=== PATIENT | female | born 1950 | race Caucasian/White ===

== ENCOUNTER → 2020-09-13 11:32 | Outpatient (CLI) | payer OTHER, SELFPAY ==
[2020-09-14 22:37] LABS: COVID19 Sendout Not Detected (Not Detect)
== END ==
PROVIDERS: Visit Provider Physician Assistant
DX: Z01.812 Encounter for preprocedural laboratory examination (principal)
CPT/HCPCS: 87635

== ENCOUNTER 2020-09-16 11:08 | Inpatient (IN) | payer OTHER, SELFPAY ==
[2020-09-10 08:30] VITALS: BMI 20.6
[2020-09-16] VITALS (18 sets, daily range): BP systolic 96–125; BP diastolic 60–79; PULSE 61–91; RESP 11–21; TEMP 35.9–37.1; O2SAT 90–99; BMI 20.9
[2020-09-16] MEDS: LACTATED RINGERS 1,000 ML 42 ML IV ×2 (12:19→14:46)
[2020-09-16] MEDS: CELECOXIB 200 MG CAPSULE 400 MG PO (12:19)
[2020-09-16] MEDS: ACETAMINOPHEN 325 MG TABLET 975 MG PO (12:19)
--- NOTE | 2020-09-16 12:59 | PM.PREOP ---
Pre-operative Note COVID-19 COVID-19 status: Negative Result date/Date tested (Pos, Neg/Pending): 09/13/20 Interval Note History & Physical reviewed/Exam performed by Physician: No Changes to H&P: Yes H&P completed within 30 days and has changed as indicated here:: Plan for open scar debridement and revision of patellar button. We had a long discussion in clinic as well as the pre-op area discussing her symptoms as well as the planned surgery. She has a difficult problem she has pain in a revised TKA in addition her bone scan is suggestive of possible loosening of the components. Her synovasure aspiration was negative for infection. I think a total revision is unlikely to provide significant benefit over open debrideement of scar as well as revision of the patellar button as most of her pain is anterior knee pain. Again I have made no promises to the patient regarding relief of symptoms, outcome etc. Patient wishes to proceed.
[2020-09-16] MEDS: CEFAZOLIN 2 GM/100 ML FROZ.PIGGY IV ×2 (13:46→21:24)
[2020-09-16] MEDS: TRANEXAMIC ACID 1,000 MG VIAL 1000 MG IV ×2 (13:58→14:59)
--- NOTE | 2020-09-16 14:18 | SUR.OPER ---
Supine on padded OR bed. Pillow under head, arms secured on padded armboards <90 degree abduction. Safety belt across torso. Non-operative leg secured with tape over blanket over lower leg. Operative leg secured in DeMayo/Dimitrios positioner. Foam padded brace at thigh of operative leg.
[2020-09-16] MEDS: ROPIVACAINE 0.5% PF 5 MG/ML 20ML VIAL 30 ML INJ (14:43)
[2020-09-16] MEDS: KETOROLAC 30 MG/ML VIAL INJ (14:44)
[2020-09-16] MEDS: MORPHINE 4 MG/ML INJ INJ (14:45)
--- NOTE | 2020-09-16 15:30 | P.OP_ITS ---
Operative Date/Time/Diagnoses Date of procedure: 09/16/20 Time of procedure: 15:30 Pre-op diagnosis: loose patella button, knee pain Post-op diagnosis: same Procedure & Clinicians Procedure: Open lysis and debridement of adhesions. Revision of patellar button. Same procedure as scheduled: Yes Indications: Anterior knee pain status post revision total knee arthroplasty. knee was aspirated in clinic and did not show any signs of infection. Concern for patellar button loosening as well as degree of patellar clunk. 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 Closure Type: primary Specimen(s): other (multiple swabs, 1x tissue culture) Prosthetic devices, grafts, tissues, transplants, or devices: Jackson and Nephew Nina II round 38 mm patellar button Estimated Blood Loss (mL): 100 Tourniquet time (min): 44 Procedure in detail: Patient was met in the preop holding area where the site and side of surgery were marked by MD informed consent had been and reviewed in signing clinic our this was also reviewed in the preoperative holding area again. All last minute questions were answered. Again I emphasized that she has a complex problem and may no promises to outcomes. Patient was then brought back in the operating room where she was induced under general anesthesia after being transferred to the operating room table. A nonsterile tourniquet was then placed on left thigh and the left lower extremity then prepped and draped in normal sterile fashion. A surgical time-out was performed verifying the site and side of surgery as well as the neck met the patient. Her old surgical incision was used. A 10. Blade was used to incise the skin followed by a new 10. Blade to raise medial and lateral flaps. The medial parapatellar arthrotomy was marked out with a Bovie and marked with a surgical marker. The arthrotomy was performed using 10. Blade. This point synovial fluid cultures were sent. The a medial peel was then performed using electrocautery as well as a limited patellar tendon peel. This gave us good exposure to the knee. This point a synovectomy including the mediolateral gutters was performed. Some of this tissue was sent for tissue culture. Then turned my attention to the patellar side there was a large volume of tissue at the insertion of the quad tendon on the undersurface of the quad tendon as it inserts into the patella. This may represent scar tissue getting caught in the patellar block box indicating patellar clunk. This was removed as well as excess tissue at the origin of the patellar tendon. The patellar button itself was interrogated was easily removed using an osteotome. The undersurface of the patellar button was then swabbed for culture as well. A freshen up cut was then performed and a curette was used to curette out the old drill holes. All membranous tissue in all old cement was removed. The knee was then infiltrated with dilute Betadine solution which was left to sit for 5 minutes prior to being irrigated with copious normal saline. Pulse lavage was used. The patella was then sized and prep for 38 mm patellar button. This was then drilled and a trial 38 mm button was placed and taken through range of motion and was tracking appropriately. The trial was then removed. Cement was packed onto the cut surface of the patella as well as between the pegs on the patellar button. This was then placed on the patella and clamped into place. All excess cement was removed and the joint again was flooded with dilute Betadine solution allowed to sit until the cement had fully cured. The Betadine was then lavaged with copious normal saline patellar clamp was removed. At this time the tourniquet was let down and hemostasis was achieved using electrocautery. The medial for patellar arthrotomy was closed using interrupted 1. Vicryl followed by a running 2. Quill suture. This was a watertight closure. Local injection was then placed inside the knee joint and we turned our attention to the skin layer. Skin was closed using 2. 0 Vicryl in interrupted fashion in the subcutaneous tissue followed by lio on skin. An Aquacel dressing was then placed. Complications: none Post-operative Condition: stable Disposition: PACU Plan for aftercare: 24 horus post-op abx, WBAT LLE, ASA 81mg BID for 6 weeks, follow cultures
[2020-09-16] MEDS: fentaNYL 100 MCG/2 ML INJ IV ×4 (15:39→16:08)
[2020-09-16] MEDS: HYDROMORPHONE 2 MG INJ IV ×8 (15:40→16:46)
[2020-09-16] MEDS: OXYCODONE IR 5 MG TABLET PO (15:50)
[2020-09-16] MEDS: ONDANSETRON 4 MG/2 ML INJ (17:44)
[2020-09-16] MEDS: LACTATED RINGERS 1,000 ML 100 ML IV ×2 (17:52→21:28)
[2020-09-16] MEDS: METOCLOPRAMIDE 10 MG/2 ML INJ IV (18:52)
[2020-09-16] MEDS: HYDROMORPHONE 0.5 MG INJ 0.2 MG IV (19:31)
[2020-09-16] MEDS: NICOTINE 14 PATCH 14 MG TOP (19:31)
[2020-09-16] MEDS: AMITRIPTYLINE 25 MG TABLET 100 MG PO (21:00)
[2020-09-16] MEDS: ALBUTEROL/IPRATROPIUM 3 ML AMPUL INH (21:09)
[2020-09-16] MEDS: ASPIRIN EC 81 MG TABLET PO (21:23)
[2020-09-16] MEDS: ACETAMINOPHEN 325 MG TABLET 650 MG PO (21:23)
[2020-09-16] MEDS: ATORVASTATIN 20 MG TABLET 40 MG PO (21:24)
[2020-09-16] MEDS: OXYCODONE IR 10 MG TABLET PO (22:17)
--- NOTE | 2020-09-16 23:00 | PC.NURSE ---
Report received from PACU, care assumed [id number]. VSS. CMS intact. Pain and nausea intermittent throughout shift. Pt. OOB with walker, ambulated in room. Good posture, steady on feet.
[2020-09-17] MEDS: OXYCODONE IR 10 MG TABLET PO ×3 (02:26→12:06)
[2020-09-17 05:24] VITALS: BP 117/56; PULSE 73; RESP 16; TEMP 36.4; O2SAT 92
[2020-09-17] MEDS: CEFAZOLIN 2 GM/100 ML FROZ.PIGGY IV (05:25)
[2020-09-17 05:58] LABS: Add Manual Diff / Slide Review NO; Basophils Absolute Auto 0 /uL (0-100); Basophils Percent Auto 0.4 % (0-2); Eosinophils Absolute Auto 0 /uL (0-450); Eosinophils Percent Auto 0.2 % (2-4); Hematocrit 34.9 % (36-46); Hemoglobin 11.7 g/dL (12.0-16.0); Lymphocytes Absolute Auto 1900 /uL (1100-4500); Lymphocytes Percent Auto 20.1 % (25-40); Mean Corpuscular HGB Conc 33.5 % (30-36); Mean Corpuscular Hemoglobin 30.4 PG (26-34); Mean Corpuscular Volume 90.9 fL (80-100); Monocytes Absolute Auto 700 /uL (0-900); Monocytes Percent Auto 7.1 % (3-14); Neutrophils Absolute Auto 6700 /uL (1500-7000); Neutrophils Percent Auto 72.2 % (50-75); Platelet Count 275 X10^3/uL (150-400); Red Blood Cell Count 3.84 X10^6/uL (4.0-5.2); Red Cell Distribution Width 12.7 % (11.6-14.8); White Blood Cell Count 9.3 X10^3/uL (4.5-11.0)
[2020-09-17] MEDS: SODIUM CHLORIDE 0.9% FLUSH 10 ML IV (06:30)
[2020-09-17 07:00] VITALS: BP 110/63; PULSE 73; RESP 16; TEMP 36.8; O2SAT 99
--- NOTE | 2020-09-17 07:49 | P.PN_ITS ---
Subjective Subjective Date Patient Seen: 09/17/20 Time Patient Seen: 07:49 Interval history: Status post, Open lysis and debridement of adhesions. Revision of patellar button. Pain is mild. Denies fever chills. No nausea vomiting. Patient's is home to assist her. Exam Vital Signs (past 8 hours): - 09/17/20 05:24 Temperature 97.5 F L Pulse Rate 73 Respiratory Rate 16 Blood Pressure 117/56 L Pulse Oximetry 92 Oxygen Delivery Method Nasal Cannula Oxygen Flow Rate 0 Narrative Exam Narrative: Right knee dressing is clean, dry and intact. Calf is soft and nontender. Both legs are warm and dry. Motor function is sensation grossly intact to the bilateral lower extremities. Objective Labs Result Diagrams: 09/17/20 05:11 Labs: Laboratory Results - last 24 hr 09/17/20 05:11 WBC 9.3 RBC 3.84 L Hgb 11.7 L Hct 34.9 L MCV 90.9 MCH 30.4 MCHC 33.5 RDW 12.7 Plt Count 275 Neut % (Auto) 72.2 Lymph % (Auto) 20.1 L [place] % (Auto) 7.1 Eos % (Auto) 0.2 L Baso % (Auto) 0.4 Neut # (Auto) 6700 Lymph # (Auto) 1900 [place] # (Auto) 700 Eos # (Auto) 0 Baso # (Auto) 0 Assessment & Plan Post-op Postoperative Procedures: Procedures Operation Date: 09/16/20 13:45 Actual Procedures Side Surgeon p Knee Open Debridement With Revision of Patellar Button Left Jacob Enriquez MD Patient progressing as expected. Mobilize with physical therapy. Likely discharge home today.
[2020-09-17] MEDS: ACETAMINOPHEN 325 MG TABLET 650 MG PO (08:45)
[2020-09-17] MEDS: CYCLOBENZAPRINE 10 MG TABLET PO (08:50)
[2020-09-17] MEDS: ASPIRIN EC 81 MG TABLET PO (08:51)
[2020-09-17] MEDS: DOCUSATE 100 MG CAPSULE PO (08:51)
[2020-09-17] MEDS: GABAPENTIN 600 MG TABLET 1200 MG PO (08:51)
[2020-09-17] MEDS: BENZONATATE 100 MG CAPSULE 200 MG PO (08:52)
[2020-09-17] MEDS: ALBUTEROL/IPRATROPIUM 3 ML AMPUL INH (09:19)
[2020-09-17 09:30] VITALS: PULSE 83; O2SAT 97
--- NOTE | 2020-09-17 09:35 | PT.IIE ---
Current Diagnoses Pain due to internal orthopedic prosthetic devices, implants and grafts, initial encounter (09/16/20) Surgery Performed Operation Date: 09/16/20 13:45 Actual Procedures p Knee Open Debridement With Revision of Patellar Button(Left) - Jacob Enriquez MD Surgical History (Last Updated 09/10/20 @ 09:21 by Ashely Herman, RN) History of arthroplasty of left knee (Acute 2015) History of arthroscopy of both knees (Acute 2013) History of bronchoscopy (Acute 08/09/18) History of Marciano fundoplication (Acute 2011) History of removal of ovarian cyst (Acute) History of surgical removal of ganglion cyst (Acute 09/28/19) Hx of bilateral cataract extraction (Acute 2015) Hx of cholecystectomy (Acute 1980) Hx of hand surgery (Acute 2005) Hx of hernia repair (Acute) Hx of total vaginal hysterectomy (Acute 1976) Hx of tubal ligation (Acute 1974) S/P right rotator cuff repair (Acute 2014) Status post fusion of joint of finger (Acute 09/28/19) Medical History (Last Updated 09/10/20 @ 09:25 by Ashely Herman RN) Chronic anxiety (Acute) Chronic low back pain without sciatica (Acute) Chronic respiratory failure with hypoxia, on home oxygen therapy (Acute) COPD (chronic obstructive pulmonary disease) (Acute) Depression (Acute) EAGLE (dyspnea on exertion) (Acute) Easy bruisability (Acute) Elevated LFTs (Acute) Emphysema of lung (Acute) GERD (gastroesophageal reflux disease) (Acute) History of pulmonary embolism (Acute 2015) History of revision of total replacement of left knee joint (Acute 2016) History of seizure (Acute 1996) HLD (hyperlipidemia) (Acute) Memory loss (Acute) Osteoarthritis (Acute) Pneumonitis (Acute) Scoliosis (Acute) Vitamin D deficiency (Acute) Physical Therapy Inpatient Evaluation/Re-Eval M1 PT/OT-IP Prior Functional Status Start: 09/17/20 12:43 Freq: NEEDED Status: Active Protocol: Document 09/17/20 09:35 AB (Rec: 09/17/20 12:57 AB [id number]) Medical Review Prior Functional Status Medical History Reviewed Yes Communication able to make needs known Mobility and Gait pt stated that she is independent with all mobilities and ambulation without AD Social History Household Members spouse Living Arrangements House Number of Floors (Floors) Two Floors Number of Stairs To Enter/Railing? 2 steps to enter with L rail ascending has 15 steps with bilateral rails to get to bedroom level Home Environment Standard Height Toilet,High Toilet,Walk in Shower Home Equipment Front Wheel Walker,Straight Cane,Crutches,Hand Held Shower ,Grab Bars In Shower M2 PT-IP Current Condition Start: 09/17/20 12:43 Freq: NEEDED Status: Active Protocol: Document 09/17/20 09:35 AB (Rec: 09/17/20 12:57 AB [email or web address]) Physical Therapy Current Condition Current Condition Evaluation Date 09/17/20 Treatment Diagnosis h/o L TKA s/p open lysis and patellar button revision; difficulty in walkin Onset Date 09/16/20 Weight Bearing Status Weight Bearing Status Weight Bear as Tolerated Allowed Weight Bearing Amount (enter % LLE WBAT or #) (%) M3 PT-IP Subjective Start: 09/17/20 12:43 Freq: NEEDED Status: Active Protocol: Document 09/17/20 09:35 AB (Rec: 09/17/20 12:57 [email or web address]) Subjective Physical Therapy Visit Type Type Initial Evaluation Visit Start Time 09:35 Visit Stop Time 10:17 Total Visit Minutes [address] [address] [place] [employer] LAW CLERK Visits 0 Physical Therapy Visit Comments Patient Comments pt is agreeable to do PT; stated that she wants to go home Therapy Pain Assessment Pain When Pain Assessed At Rest Pain Present Pain Present Pain Reported Location left knee Intensity 6 Scale Used Numeric (0 - 10) Pain Management Techniques Apply Cold,Modification of Treatment,Timing of Activity with Medications M4 PT-IP Mobility and Gait Start: 09/17/20 12:43 Freq: NEEDED Status: Active Protocol: Document 09/17/20 09:35 AB (Rec: 09/17/20 12:57 [email or web address]) PT-Bed Mobility Assessment Supine to Sit Supine to Sit Standby Assistance Scooting Scooting to Edge of Bed Standby Assistance PT-Transfer Assessment Sit to and From Stand Sit to and from Stand Standby Assistance Equipment Transfer Assistive Device Gait Belt,Front Wheeled Walker Orthotic/Prosthetic Devices or Brace: No Transfers Transfer Destination Chair,Toilet Transfer Technique ambualted using FWW Transfer Ability Level of Assist Standby Assistance,Contact Guard Assistance,1 Person Assistance,Use of Upper Extremities Comments Mobility Comments completed supine to sit SBA, sit to stand SBA and ambualted using FWW in room ~ 30 ft. pt agreed to do stairs but requested to use the toilet first and ambulated to the toilet using FWW initially requiring CGA but afterwards just required SBA. completed toileting SBA and ambulated out of the toilet using FWW SBA to the sink and was able to maintain standing SBA while completing handwashing. ambulated out towards the stairs ~ 200 ft using FWW SBA. completed up/down steps initially using bilateral rails SBA and then completed using just L rail SBA. ambulated more in the hallway >300 ft using FWW SBA. pt can be impulsive. walked to her room and rested. but when PT was trying to set up pt's table, pt just got up from chair without FWW and ambulated in room without AD. educated pt on safety. agreed to sit up on chair. positioned on chair. ice pack provided. call light and table placed within reach. Gait Assessment Gait Gait Assistance Required: Standby Assistance,Contact Guard Assist Distance (Feet) 500 Able to Maintain Weight Bearing Status Yes During Gait Assistive Devices Assistive Device Gait Belt,Front Wheeled Walker Orthotic/Prosthetic Devices or Brace: No Gait Deviations General Gait Pattern Antalgic,Decreased Stride Length,Decreased Feet Clearance Factors Limiting Gait Function Factors Limiting Gait Function Decreased Activity Tolerance, Decreased Strength,Limited Range of Motion,Pain,Poor Balance,Poor Safety Awareness Comments Gait Comments pls refer to mobility section for details Stair Climbing Assessment Evaluation Level of Assist On Stairs Standby Assistance Devices Stair Climbing Assistive Devices Left Railing,Right Railing Technique/Endurance Stair Climbing Direction Ascend and Descend Stair Climbing Technique Step to Step Number of Steps Climbed 3 Query Text: Stair Climbing Set # Repetitions (reps) 5 Comments Stair Climbing Comments pls refer to mobility section for details PT-Balance Assessment Sitting Balance and Reactions Static Sitting Balance Ability Normal Dynamic Sitting Balance Ability Normal Standing Balance and Reactions Static Standing Balance Ability Good Dynamic Standing Balance Ability Fair M5 PT-IP Objective Assessments Start: 09/17/20 12:43 Freq: NEEDED Status: Active Protocol: Document 09/17/20 09:35 AB (Rec: 09/17/20 12:57 AB [id number]) Orientation Orientation/Cognition Level of Alertness Alert Orientation Name,Age,Birthday,Month,Date, Year,Day of Week,Place, Situation Language Function Ability No Deficits Noted Safety Awareness Decreased Safety Awareness Memory Description No Deficits Noted Gross Range of Motion Lower Extremity ROM Assessment Left Impaired Impairments L knee flexion: ~ 80 deg L knee extension: 10 deg less to 0 Strength Lower Extremity Strength Assessment Left Impaired Hip 4-/5 Knee 3+/5 Coordination Assessment Gross Coordination Gross Coordination WNL Sensation Assessment Sensation Gross Sensation WNL Muscle Tone Muscle Tone WNL Yes M6 PT-IP Treatment Start: 09/17/20 12:43 Freq: NEEDED Status: Active Protocol: Document 09/17/20 09:35 AB (Rec: 09/17/20 12:57 AB [id number]) Physical Therapy Treatment Exercises Exercises Heel Slides Education Education Provided Precautions,Weight Bearing Status,Post-Op Packet,Safety M7 PT-IP Assessment and Plan Start: 09/17/20 12:43 Freq: NEEDED Status: Active Protocol: Document 09/17/20 09:35 AB (Rec: 09/17/20 12:57 AB [id number]) PT Summary Assessment and Plan Potential Rehabilitation Potential Good Status of Condition at Evaluation Stable Summary Impairments Pain,ROM,Strength,Balance,Bed Mobility,Transfers,Gait, Activity Tolerance Assessment Summary pt is doing well with mobility and requiring SBA using FWW but can be impulsive. pt wants to go home today. pt will have her spouse to assist her at home. Goals Bed Mobility Goal Independent Transfer Goal Independent,Front Wheeled Walker Gait Goal Independent,Front Wheel Walker Gait Distance 300 Other Goals up/down 2 steps L rail ascending; 15 steps B rail mod I Days to Meet Goals 3 Frequency of Treatment Frequency Of Treatment Twice a Day Treatment Plan Physical Therapy Treatment Plan Bed Mobility Training,Transfer Training,Gait Training, Therapeutic Exercise,Balance Retraining,Post Op Education, Discharge Planning,Hot or Cold Pack,Neuromuscular Re-ed Recommendations To Nursing Amount of Assist Needed Standby Assistance Discharge Recommendations PT Discharge Recommendations Home with Assistance, Outpatient PT Transportation Needs at Discharge Private Vehicle
--- NOTE | 2020-09-17 11:06 | CM.DANOTE ---
DCP: Case received, EMR reviewed and met with patient. Introduced self and role. Was able to obtain information from patient regarding her baseline activity status prior to surgery, and home status. DCP assessment completed with information currently available. Patient is a 70 year old female who admitted yesterday morning to the care of the orthopedic team. PCP: Dr. Abraham Torres at [facility]. Payer: confirmed: [facility]. Patient came to the hospital for a surgical procedure. She had a left knee open debridement, with revision of patella. Patient had been having increased pain prior to surgery, secondary to eddie replacement. Met with patient in her room. She is alert and oriented, pleasant. , [place], was present in the room as well. They both reside in [facility]. Patient is independent at baseline. She indicated that she does have stairs in the home, but plans to set up her bed down stairs. She has worked with P.T. Stated, she should be going home today. P: DCP to continue to follow. Patient may be going home today with outpatient P.T. Miriam Pisano RN/Monkey Trainer
[2020-09-17 12:00] VITALS: BP 105/58; PULSE 93; RESP 16; TEMP 37.5; O2SAT 95
--- NOTE | 2020-09-17 13:27 | PM.DS.1 ---
History of Present Illness History of Present Illness Date Patient Seen: 09/17/20 Time Patient Seen: 13:27 Chief complaint: INPT Narrative: Pain mild. Denies fever chills. at home to assist her. She did well with physical therapy. Patient wishes to go home today. Discharge Providers Provider Date of admission: 09/16/20 11:08 Discharge Date: 09/17/20 Consults: 09/10/20 09:34 Consult to Respiratory Therapy Evaluate & Treat Comment: INPT 09/16-pt would like a nicotine patch Physician Instructions: Evaluate and treat 09/16/20 12:05 Consult to Respiratory Therapy Evaluate & Treat Comment: Physician Instructions: Evaluate and treat 09/16/20 17:20 Consult to Anesthesiology Routine Comment: Consulting Provider: Anesthesiologist Reason for consultation: Regional block for post operative pain control Consult to Discharge Planning Routine Comment: Consult to Physical Therapy Evaluate & Treat Comment: Physician Instructions: postop TKA protocol Consult to Respiratory Therapy Evaluate & Treat Comment: Physician Instructions: Evaluate and treat Discharge provider: Matt Caal PA-C Summary Hospital Course Discharge Diagnosis: re-op diagnosis: loose patella button, knee pain Hospital Course: Procedure: Open lysis and debridement of adhesions. Revision of patellar button. Same procedure as scheduled: Yes Indications: Anterior knee pain status post revision total knee arthroplasty. knee was aspirated in clinic and did not show any signs of infection. Concern for patellar button loosening as well as degree of patellar clunk. 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 Closure Type: primary Specimen(s): other (multiple swabs, 1x tissue culture) Prosthetic devices, grafts, tissues, transplants, or devices: Jackson and Nephew Nina II round 38 mm patellar button Estimated Blood Loss (mL): 100 Tourniquet time (min): 44 Status at Discharge Cognitive/behavioral status at discharge: at baseline, oriented Functional status at discharge: uses cane/walker Overall status at discharge: patient is progressing back to baseline Time Spent with Patient Time spent: Less than 30 minutes Exam Vital Signs (past 8 hours): - 09/17/20 07:00 09/17/20 09:30 09/17/20 12:00 Temperature 98.2 F 99.5 F Pulse Rate 73 83 93 H Respiratory Rate 16 16 Blood Pressure 110/63 105/58 L Pulse Oximetry 99 97 95 Oxygen Delivery Method Room Air Oxygen Flow Rate 0 Narrative Exam Narrative: See progress note Objective Labs Result Diagrams: 09/17/20 05:11 Labs: Laboratory Results - last 24 hr 09/17/20 05:11 WBC 9.3 RBC 3.84 L Hgb 11.7 L Hct 34.9 L MCV 90.9 MCH 30.4 MCHC 33.5 RDW 12.7 Plt Count 275 Neut % (Auto) 72.2 Lymph % (Auto) 20.1 L [place] % (Auto) 7.1 Eos % (Auto) 0.2 L Baso % (Auto) 0.4 Neut # (Auto) 6700 Lymph # (Auto) 1900 [place] # (Auto) 700 Eos # (Auto) 0 Baso # (Auto) 0 Discharge Assessment & Plan Assessment and Plan Assessment: Patient progressing as expected status post open lysis and debridement of adhesions. Revision of patellar button. Weight-bearing as tolerated, aspirin 81 mg b.i.d. for 6 weeks. Continue to follow cultures. Preliminaries aerobe culture no growth, anaerobic culture pending, Gram stain final no cells/organisms seen no white blood cells seen. Today in stable condition. Follow-up [facility] in 2 weeks. Discharge Plan Discharge Plan Patient Disposition: Home Discharge orders & Medications Prescriptions: New acetaminophen 325 mg Tablet 650 mg PO TID Qty: 60 RF: 0 aspirin 81 mg Tablet,Delayed Release (Dr/Ec) 81 mg PO BID Qty: 60 RF: 0 oxycodone 10 mg Tablet 10 mg PO Q3HR PRN (Reason: Pain, Moderate (4-6)) Qty: 30 RF: 0 Continued cyclobenzaprine 10 mg Tablet 10 mg PO TID PRN (Reason: Muscle Spasm) RF: 0 atorvastatin 40 mg Tablet 40 mg PO BEDTIME RF: 0 gabapentin 600 mg Tablet 1,200 mg PO BID RF: 0 ipratropium-albuterol 0.5 mg-3 mg(2.5 mg base)/3 mL Solution For Nebulization 3 ml INHALATION BID RF: 0 benzonatate 200 mg Capsule 200 mg PO TID RF: 0 docusate sodium 50 mg Capsule 50 mg PO BEDTIME RF: 0 hydrocodone-acetaminophen 7.5-325 mg Tablet 1 tab PO QID PRN (Reason: Pain (Scale Score 1-3)) RF: 0 albuterol sulfate 90 mcg/actuation Hfa Aerosol Inhaler 2 puff INHALATION Q4-6H PRN (Reason: Shortness Of Breath) RF: 0 amitriptyline 100 mg Tablet 100 mg PO BEDTIME RF: 0 Discontinued aspirin 81 mg Tablet,Delayed Release (Dr/Ec) 81 mg PO DAILY RF: 0 Follow up/Referrals: Jacob Enriquez MD [Physician] - (2 weeks) Diet/Activity/Treatments Diet: Diet as Tolerated Activity: WBAT Cold/Heat Therapy: ice as needed Skin/Wound/Dressing Care Report to your healthcare provider any signs of infection, such as:: chills, fever, increased pain, unusual drainage and unusual redness Dressing: keep clean and dry Visit Report/Discharge Packet Instructions: How to Choose and Use a Walker, DI for Knee Replacement, DI for Constipation, How to Prevent Falls, DI for Prescription Opioid Use Stand Alone Forms: Surgery Discharge
--- NOTE | 2020-09-17 14:52 | PC.NURSE ---
Discharge: Pt feels ready to d/c home. Seen by BELA Caal and given his instructions. Seen by PT and passed there kalpesh. Understands her total knee precautions. Po pain meds are effective. Discussed wound care, remove wrap tomorrow and leave aquacel in place, if dressing becomes detached and/or saturated she was instructed to call the office for further directions about what to do. Diet tolerated w/out problems. Pt is voiding w/out diff. Reviewed discharge pack, rx given, rest were esent. Questions answered. Pt d/c home via auto w/spouse.
== END 2020-09-17 14:10 | disposition home or self-care (01) | DRG 465 ==
PROVIDERS: Admitting Provider Orthopaedic Surgery Adult Reconstructive Orthopaedic Surgery; Referring Provider Orthopaedic Surgery Adult Reconstructive Orthopaedic Surgery; Visit Provider Orthopaedic Surgery Adult Reconstructive Orthopaedic Surgery
PROC: 0SPD0NZ Removal of Patellofemoral Synthetic Substitute from Left Knee Joint, Open Approach (ICD-10-PCS; principal; 2020-09-16 13:45)
DX: T84.033A Mechanical loosening of internal left knee prosthetic joint, initial encounter (principal); T84.84XA Pain due to internal orthopedic prosthetic devices, implants and grafts, initial encounter; M24.662 Ankylosis, left knee; J44.9 Chronic obstructive pulmonary disease, unspecified; Z99.81 Dependence on supplemental oxygen; F32.9 Major depressive disorder, single episode, unspecified; F41.9 Anxiety disorder, unspecified; Z86.711 Personal history of pulmonary embolism; F17.210 Nicotine dependence, cigarettes, uncomplicated; Z01.812 Encounter for preprocedural laboratory examination; Z11.59 Encounter for screening for other viral diseases; M41.9 Scoliosis, unspecified
CPT/HCPCS: 36415; 85025; 87070; 87075; 87176; 87205; 87635; 94640; 94762; 97161; 97530; C1776; A9270; J0690; J1100; J1170; J1885; J2250; J2270; J2405; J2704; J2765; J3010